=== PATIENT | male | born 1980 | race Asian ===

== ENCOUNTER 2016-12-05 15:59 | Day surgery (SDC) | payer OTHER ==
[~2016-12-05] VITALS: Ht 165.1 cm; Wt 63.2 kg
[2016-12-05] VITALS (13 sets, daily range): BP systolic 110–147; BP diastolic 63–80; PULSE 70–92; RESP 16–22; Ht 165.1 cm; Wt 63.2 kg
[2016-12-05] MEDS ORDERED: LACTATED RINGER'S 1,000 ML IV SCH (16:30)
[2016-12-05] MEDS ORDERED: MULTIVITAMIN PO (16:32)
[2016-12-05 16:53] LABS: ADD SCAN DIFF NO
[2016-12-05 16:59] LABS: BASOPHIL # 0.1 10^3/ul (0.0-0.1); BASOPHILS % 0.8 % (0.0-2.0); EOSINOPHILS # 0.3 10^3/ul (0.0-0.5); EOSINOPHILS % 3.9 % (0.0-7.0); HEMATOCRIT 39.5 % (42.0-52.0); HEMOGLOBIN 13.3 g/dl (14.0-18.0); LYMPHOCYTES # 1.7 10^3/ul (0.8-2.9); LYMPHOCYTES % 21.9 % (15.0-51.0); MEAN CORPUSCULAR HEMOGLOBIN 31.4 pg (29.0-33.0); MEAN CORPUSCULAR HGB CONC 33.7 g/dl (32.0-37.0); MEAN CORPUSCULAR VOLUME 93.2 fl (82.0-101.0); MEAN PLATELET VOLUME 9.1 fl (7.4-10.4); MONOCYTE # 0.5 10^3/ul (0.3-0.9); MONOCYTES % 5.7 % (0.0-11.0); NEUTROPHIL # 5.3 10^3/ul (1.6-7.5); NEUTROPHILS % 67.3 % (39.0-77.0); PLATELET COUNT 326 10^3/UL (140-415); RED BLOOD COUNT 4.24 10^6/ul (4.70-6.10); WHITE BLOOD COUNT 7.9 10^3/ul (4.8-10.8)
[2016-12-05 17:08] LABS: ADD UMIC NO; UR ASCORBIC ACID NEGATIVE (NEGATIVE); UR BILIRUBIN (Dip) NEGATIVE (NEGATIVE); UR BLOOD (Dip) NEGATIVE (NEGATIVE); UR CLARITY CLEAR (CLEAR); UR COLOR YELLOW (YELLOW); UR GLUCOSE (Dip) NEGATIVE (NEGATIVE); UR KETONES (Dip) NEGATIVE (NEGATIVE); UR LEUKOCYTE ESTERASE (Dip) NEGATIVE Leu/ul (NEGATIVE); UR NITRITE (Dip) NEGATIVE (NEGATIVE); UR SPECIFIC GRAVITY (Dip) 1.019 (1.003-1.030); UR TOTAL PROTEIN (Dip) NEGATIVE (NEGATIVE); UR UROBILINOGEN (Dip) NEGATIVE (NEGATIVE)
--- NOTE | 2016-12-05 19:09 | HPN ---
Date/Time of Note Date/Time of Note DATE: 12/05/16 TIME: 19:08 Interval H&P Admission Note Pt. seen H&P reviewed: No system changes DIRK MIRAMONTES MD Dec 05, 2016 19:09
[2016-12-05] MEDS ORDERED: ROPIVACAINE 0.5 % 30 ML VIAL ONE ×2 (19:21→20:25)
[2016-12-05] MEDS ORDERED: POLYMYXIN/BACITRACIN 1L IRRIG ONE (19:22)
[2016-12-05] MEDS ORDERED: morphine SULFATE/PF (10 MG/10 ML) INJ ONE (19:22)
[2016-12-05] MEDS ORDERED: PROPOFOL 20 ML ONE (20:09)
[2016-12-05] MEDS ORDERED: SUCCINYLCHOLINE CHLORIDE 100 MG/5 ML SYG IV ONE (20:09)
[2016-12-05] MEDS ORDERED: ROCURONIUM 50 MG INJ ONE (20:09)
[2016-12-05] MEDS ORDERED: FENTAnyl 50 MCG/ML VIAL ONE ×2 (20:10→21:13)
[2016-12-05] MEDS ORDERED: MIDAZOLAM 1 MG/ML 2 ML INJ ONE (20:10)
[2016-12-05] MEDS ORDERED: DEXAMETHASONE 4 MG/ML 1 ML INJ ONE (20:21)
[2016-12-05] MEDS ORDERED: ONDANSETRON 4 MG INJ ONE (20:21)
[2016-12-05] MEDS ORDERED: CEFAZOLIN 1 GM INJ ONE (20:21)
[2016-12-05] MEDS ORDERED: LIDOCAINE 1% (MDV) 20 ML INJ ONE (20:25)
[2016-12-05] MEDS ORDERED: LIDOCAINE 2%/EPI 30 ML INJ ONE (20:27)
[2016-12-05] MEDS ORDERED: SUGAMMADEX SODIUM 200 MG/2 ML VIAL IV ONE (21:13)
--- NOTE | 2016-12-05 21:31 | OPR ---
Date/Time of Note Date/Time of Note DATE: 12/05/16 TIME: 21:28 Operative Report Preoperative Diagnosis left ellbow radial head fracture comminuated fragments widely displaced tender at druj op note dictated to my personal transciber, the [facility] prompts having been changed Postoperative Diagnosis same Operation/Procedure Performed excise radial head fragments , place prosthetic head Surgeon: DIRK MIRAMONTES MD Anesthesia: general Estimated Blood Loss: 10 - 50 ml's Specimens radial head fragments Grafts/Implants radial head biomet modular Complications: None DIRK MIRAMONTES MD Dec 05, 2016 21:31
[2016-12-05] MEDS ORDERED: ONDANSETRON 4 MG INJ IV PRN (22:00)
[2016-12-05] MEDS ORDERED: PROCHLORPERAZINE 10 MG INJ IV PRN (22:00)
[2016-12-05] MEDS ORDERED: HYDROmorphONE (0.2 MG/ML) 10ML SYG IV PRN ×2 (22:00)
--- NOTE | 2016-12-05 22:55 | RADRPT ---
PROCEDURE: Intraoperative imaging of the left elbow with fluoroscopy. CLINICAL INDICATION: Left elbow pain. Intraoperative. TECHNIQUE: A single lateral image of the left elbow was obtained in the operating room with an im age intensifier. No radiologist was in attendance. Fluoroscopy time is unobtainable. COMPARISON: No prior study is available for comparison. FINDINGS: There is a prosthesis in the location of the radial head and neck. IMPRESSION: 1. Intraoperative imaging of the left elbow with left radial head and neck prosthesis noted. RPTAT: QQ .Chandan Vick MD, MD Date Time Electronically viewed and signed by .Chandan Vick MD, on 12/05/2016 22:54 .R/
== END 2016-12-05 23:05 | disposition home or self-care (01) ==
LOC: SDS 15:59
PROVIDERS: ATTEND Orthopaedic Surgery Hand Surgery
DX: S52.122D Displaced fracture of head of left radius, subsequent encounter for closed fracture with routine healing (principal); X58.XXXD Exposure to other specified factors, subsequent encounter
CPT/HCPCS: 24666; 73070; 81003; 85025; J0690; J1100; J2250; J2405; J2795; J3010; J2274; J7999